=== PATIENT | female | born 1990 | race African-American/Black ===

== ENCOUNTER 2020-08-10 12:17 | Emergency (ER) | payer OTHER ==
[~2020-08-10] VITALS: Ht 167.6 cm; Wt 74.8 kg
[2020-08-10] MEDS ORDERED: ACETAMINOPHEN 325 MG TAB PO ONE (12:45)
[2020-08-10] MEDS ORDERED: FEROSUL325 MG PO (12:49)
[2020-08-10] MEDS ORDERED: IBUPROFEN IB200 MG PO (12:53)
[2020-08-10] MEDS ORDERED: ACETAMINOPHEN500 MG PO (12:53)
[2020-08-10] MEDS ORDERED: ACETAMINOPHEN 325 MG TAB ONE (13:06)
== END 2020-08-10 13:41 | disposition home or self-care (01) ==
LOC: FSED 12:29
DX: S83.91XA Sprain of unspecified site of right knee, initial encounter (principal); S83.004A Unspecified dislocation of right patella, initial encounter; X50.1XXA Overexertion from prolonged static or awkward postures, initial encounter; Y93.B9 Activity, other involving muscle strengthening exercises; Y92.84 Military training ground as the place of occurrence of the external cause; D64.9 Anemia, unspecified
CPT/HCPCS: 99284

== ENCOUNTER 2024-07-22 08:13 | Emergency (ER) | payer OTHER ==
[~2024-07-22] VITALS: Ht 170.2 cm; Wt 85.7 kg
[~2024-07-22 08:13] MED LIST: ACETAMINOPHEN500 MG PO; FEROSUL325 MG PO; IBUPROFEN IB200 MG PO
[2024-07-22 08:19] VITALS: TEMP 98.2
[2024-07-22] MEDS ORDERED: SODIUM CHLORIDE 0.9% 1000ML 1,000 ML ONE (08:33)
[2024-07-22] MEDS: SODIUM CHLORIDE 0.9% 1000ML 1,000 ML IV SCH (08:45)
[2024-07-22 08:54] LABS: BASOPHILS % 0.5 % (0.0-1.0); EOSINOPHILS # (AUTO) 0.1 (0.0-0.4); EOSINOPHILS % 1.2 % (0.0-6.0); HEMATOCRIT 36.7 % (34.2-44.1); HEMOGLOBIN 11.6 g/dL (12.0-16.0); LYMPHOCYTES # (AUTO) 1.4 (1.0-3.2); LYMPHOCYTES % 33.3 % (18.0-39.1); MEAN CORPUSCULAR HEMOGLOBIN 27.2 pg (28-32); MEAN CORPUSCULAR HGB CONC 31.6 g/dL (31-35); MEAN CORPUSCULAR VOLUME 85.9 fL (81-99); MONOCYTES # (AUTO) 0.4 (0.2-0.8); MONOCYTES % 8.9 % (4.4-11.3); NEUTROPHILS # (AUTO) 2.4 (2.1-6.9); NEUTROPHILS % 55.6 % (38.7-80.0); PLATELET COUNT 267 x10e3/uL (140-360); RED BLOOD COUNT 4.27 x10e6/uL (3.6-5.1); RED CELL DISTRIBUTION WIDTH 16.4 % (11.7-14.4); WHITE BLOOD COUNT 4.27 x10e3/uL (4.8-10.8)
[2024-07-22 09:05] LABS: ANION GAP 13.2 mmol/L (8-16); CREATININE, SERUM 0.91 mg/dL (0.57-1.11); POTASSIUM 4.2 mmol/L (3.5-5.1)
[2024-07-22 09:12] VITALS: PULSE 72; RESP 18
[2024-07-22 09:30] VITALS: BP 125/102; PULSE 74; RESP 18; O2SAT 3
== END 2024-07-22 09:42 | disposition home or self-care (01) ==
LOC: ER 08:17
DX: R55 Syncope and collapse (principal); M25.531 Pain in right wrist; M25.561 Pain in right knee; Y93.B9 Activity, other involving muscle strengthening exercises; D64.9 Anemia, unspecified
CPT/HCPCS: 36415; 73110; 73562; 80048; 84702; 85025; 93005; 99284; J7030